=== PATIENT | female | born 1995 | race Two or more races ===

== ENCOUNTER 2025-07-08 20:32 | Emergency (ER) | payer MEDICAID, SELFPAY ==
[2025-07-08 20:37] VITALS: BP 105/73; PULSE 89; PULSE 93; RESP 18; TEMP 36.4; O2SAT 96; O2SAT 98; BMI 32.3
--- NOTE | 2025-07-08 20:42 | PD.EDRME ---
Rapid Medical Screening Exam [facility] Arrival date/time: 07/08/25 20:32 Chief Complaint: Abdominal Pain Time Seen by Provider: 07/08/25 20:36 Vital signs: Vital Signs Temperature 97.6 F 07/08/25 20:37 Pulse Rate 89 07/08/25 20:37 Respiratory Rate 18 07/08/25 20:37 Blood Pressure 105/73 07/08/25 20:37 Pulse Oximetry (%) 98 07/08/25 20:37 [facility] Narrative: Patient is a 29-year-old female with a limited past medical history who presented to the emergency room via EMS with a chief complaint of intractable nausea and vomiting and diarrhea after taking Wegovy at approximately 8 AM for the first time. Wegovy dose at 0.25 mg subcu x 1. Shortly after 3 PM patient started experiencing nausea and vomiting that is intractable. First time taking GLP-1. No blood in stool. No blood in emesis. No fevers or chills. Exam: General Appearance: Alert & Oriented X3, well-nourished female who is lying in rney in mild discomfort HEENT: Skull symmetrical and atraumatic. Conjunctivae pin and moist. Pupils equal, round, reactive to light and accommodation (PERRL). External ear without lesion or discharge. Straight, nares patient, mucosa pink, no discharge. Cardio: Normal Rate and Rhythm with S1 and S2 heart sounds. No murmurs or extra heart sounds auscultated. No bruits on carotid auscultation. No peripheral edema or cyanosis. Lungs: Symmetric with good expansion. Chest and back non-tender. Breath sounds vesicular without crackles, wheezing or rhonchi Abdomen: mild tenderness, left upper quadrant, Non-distended, Normal Reactive Bowel Sounds Neuro: Alert, cooperative, oriented to person, place, and time. Speech clear. CN grossly intact. Upper motor strength 5/5 and Lower motor strength 5/5. Sensation intact. Clinical Impression: Patient appears non toxic w/ stable vitals w/ chief complain of intractable nausea and vomiting. - The patient's plan was discussed with attending Dr. Korey Laguna MD PGY2 Internal Medicine
--- NOTE | 2025-07-08 20:50 | EKG_ITS ---
[facility] Test Date: 2025-07-08 Pat Name: RYANNE BERG Department: Room: - Gender: Female Echo Vasc Tech: : 1995 Requested By: Soila Laguna Order Number: [id number] Reading MD: Soila Laguna Measurements Intervals [place] Rate: 84 P: 26 TN: 136 QRS: 23 QRSD: 83 T: 28 QT: 346 QTc: 411 Interpretive Statements SINUS RHYTHM WITH SINUS ARRHYTHMIA INDETERMINATE AXIS NONSPECIFIC T-WAVE ABNORMALITY No previous ECG available for comparison /store/S0/[id number]/ecg/[id number].pdf
[2025-07-08] MEDS: ONDANSETRON ODT 4 MG TABRAP PO (21:14)
[2025-07-08] MEDS: PANTOPRAZOLE 40 MG TABLET PO (21:14)
[2025-07-08 21:17] LABS: Lactate (Lactic Acid) 1.9 mMol/L (0.4-2.0)
[2025-07-08 21:18] LABS: Basophils # (Auto) 0.0 Thou/mm3 (0.0-0.2); Basophils % (Auto) 0 % (0-2.5); Eosinophils # (Auto) 0.0 Thou/mm3 (0.0-0.5); Eosinophils % (Auto) 0 % (0-10); Hematocrit 46.5 % (36.0-46.0); Hemoglobin 15.8 g/dL (12.0-16.0); Immature Granulocytes Auto 0.02 Thou/mm3 (0.00-0.00); Lymphocytes # (Auto) 0.3 Thou/mm3 (1.0-4.8); Lymphocytes % (Auto) 3 % (10-50); Mean Corpuscular HGB Conc 34.0 g/dl (31.0-37.0); Mean Corpuscular Hemoglobin 29.1 pg (25.0-35.0); Mean Corpuscular Volume 86 fL (80-100); Monocytes # (Auto) 0.2 Thou/mm3 (0.0-0.8); Monocytes % (Auto) 2 % (0-12); Neutrophils # (Auto) 9.0 Thou/mm3 (1.8-7.7); Neutrophils % (Auto) 94 % (37-80); Nucleated Red Blood Cell # 0.00 Thou/mm3 (0.00-0.00); Nucleated Red Blood Cell % 0 /100 WBC (0); Platelet Count 252 Thou/mm3 (140-440); RDW Standard Deviation 39.5 fL (36.4-46.3); Red Blood Count 5.43 Miln/mm3 (4.00-5.20); White Blood Count 9.5 Thou/mm3 (3.6-11.0)
[2025-07-08 21:40] LABS: Alanine Aminotransferase 12 U/L (10-49); Albumin, Serum 5.3 gm/dL (3.5-5.0); Albumin/Globulin Ratio 1.9 (1.2-2.2); Alkaline Phosphatase 104 U/L (46-116); Amylase 55 U/L (30-118); Anion Gap 11 (7-16); Aspartate Amino Transferase 21 U/L (0-34); BUN/Creatinine Ratio 13 Ratio (12-20); Bilirubin,Total 1.1 mg/dL (0.3-1.2); Blood Urea Nitrogen 12 mg/dL (9-23); Calcium 10.6 mg/dL (8.3-10.6); Calcium (Corrected) 10.6 mg/dL (8.5-10.1); Carbon Dioxide 22.5 mMol/L (20.0-31.0); Chloride 108 mMol/L (98-107); Creatinine (Component) 0.9 mg/dL (0.6-1.3); Estimated Creatinine Clearance 79.3 mL/min (>60); Globulin 2.8 gm/dL (2.3-3.5); Glucose 123 mg/dL (74-106); Lipase 27 U/L (12-53); Magnesium 1.8 mg/dL (1.6-2.6); Osmolality,Calculated 281 (275-295); Potassium 4.1 mMol/L (3.4-5.1); Sodium 141 mMol/L (136-145); Total Protein 8.1 gm/dL (5.7-8.2); eGFR > 60 See Note
[2025-07-08 22:51] LABS: Collection Type, Urine Clean Catch
[2025-07-08 23:00] LABS: Amorphous Crystals,Urine Present (Absent); Bacteria,Urine Rare; Bilirubin,Urine Negative (Negative); Blood,Urine 1+ (Negative); Clarity,Urine Turbid (Clear/Hazy); Color,Urine Yellow (Lt Yel-Yel); Culture Indicated,Urine Not Indicated; Glucose, Urine Negative (Negative); HCG Qualitative,Urine Negative; Ketones,Urine 4+ (Negative); Leukocyte Esterase,Urine Negative (Negative); Nitrite,Urine Negative (Negative); PH,Urine 6.5 (5.0-7.0); Protein,Urine 1+ (Neg - Trace); RBC,Urine 8 /hpf (0-3); Specific Gravity,Urine 1.033 (1.001-1.035); Squamous Epithelial Cell,Urine 14 /hpf (0-5); Urobilinogen,Urine Negative mg/dL (0.0-1.0); WBC,Urine 4 /hpf (0-5)
[2025-07-08 23:09] LABS: Amphetamine/Methamp Scrn,U Negative (Negative); Barbiturate Screen,Urine Negative (Negative); Benzodiazepines Screen,Urine Negative (Negative); Benzoylecgonine Screen, Ur Negative (Negative); Fentanyl Screen,Urine Negative (Negative); Opiate Screen,Urine Negative (Negative); THC Screen,Urine Positive (Negative)
--- NOTE | 2025-07-08 23:25 | PD.EDNV ---
Nausea/Vomit./Diarrhea-RME/HPI General Chief complaint: Abdominal Pain Stated complaint: ABD PAIN Time Seen by Provider: 07/08/25 20:36 Arrival date/time: 07/08/25 20:32 RME / HPI RME / HPI Narrative: Patient is a 29-year-old female with a limited past medical history who presented to the emergency room via EMS with a chief complaint of intractable nausea and vomiting and diarrhea after taking Wegovy at approximately 8 AM for the first time. Wegovy dose at 0.25 mg subcu x 1. Shortly after 3 PM patient started experiencing nausea and vomiting that is intractable. First time taking GLP-1. No blood in stool. No blood in emesis. No fevers or chills. At 23:33-Patient now complaining of abdominal pain, mild right upper quadrant tenderness, and Right CVA tenderness--->US gallbladder ordered & CT Abdomen/Pelvis non contrast to rule out kideny stones. AT 3:00 AM-Went to update patient on US gallbladder results & Abdomen Pelvis CT after Pre-liminary read returned--->Patient not in room, Eloped. Patient had no IVs Related Data Previous Rx's ?Medication ?Instructions ?Recorded acyclovir 200 mg capsule 200 mg PO QID #20 caps 07/21/19 acetaminophen 650 mg 650 mg PO Q12H #30 tabs 04/20/22 tablet,extended release (Tylenol 8 Hour) ibuprofen 600 mg tablet 600 mg PO Q6H #30 tabs 11/04/23 ondansetron HCl 4 mg tablet 4 mg PO Q8H PRN nausea and 07/08/25 vomiting 7 days #14 tabs Allergies Allergy/AdvReac Type Severity Reaction Status Date / Time metoclopramide Allergy Severe Seizure Verified 04/20/22 09:37 adhesive tape Allergy Blister Verified 04/20/22 09:37 Review of Systems Review of Systems Narrative Review of Systems: General appearance: NO weight change, NO fatigue, NO weakness, NO fever, NO chills, NO night sweats, No cough Skin: NO rash, NO itching, NO sores, NO moles HEENT: NO Trauma, NO nausea, NO vomiting, NO visual changes, NO blurry vision, NO double vision, NO tinnitus, NO vertigo, NO ear discharge, NO rhinorrhea, NO stuffiness, NO sneezing, NO allergy, NO epistaxis. NO Hoarseness, NO sore throat, NO swollen neck. Cardiac: NO Palpitations, NO dyspnea on exertion, NO orthopnea, NO paroxysmal nocturnal dyspnea, NO edema Respiratory: NO Shortness of Breath, NO Wheezing, NO Cough, NO Sputum, NO hemoptysis GI:NO appetite, Yes nausea, Yes vomiting, NO dysphagia, NO changes in bowel frequency, NO stool color, NO diarrhea, NO constipation, NO hemetemesis, NO hemorrhoids, NO melena, NO hematechezia, NO abdominal pain, NO jaundice Renal: NO frequency, NO hesitancy, NO urgency, NO hematuria, NO nocturia, NO incontinence MSK: NO muscle weakness, NO gout, NO arthritis, NO muscle stiffness Neuro: NO headaches, NO tremors, NO weakness, NO paralysis, NO seizures, NO loss of consciousness, NO numbness. Hem: NO anemia, NO easy bruising/bleeding, NO petechiae, NO purpura Endo: NO heat/cold intolerance, NO excessive sweating, NO polyuria, NO polydipsia, NO polyphagia, NO thyroid problems, NO diabetes Pysch: NO mood, NO anxiety, NO depression ED Exam Narrative Physical exam: General Appearance: Alert & Oriented X3, well-nourished female who is lying in gurney in mild discomfort HEENT: Skull symmetrical and atraumatic. Conjunctivae pin and moist. Pupils equal, round, reactive to light and accommodation (PERRL). External ear without lesion or discharge. Straight, nares patient, mucosa pink, no discharge. Cardio: Normal Rate and Rhythm with S1 and S2 heart sounds. No murmurs or extra heart sounds auscultated. No bruits on carotid auscultation. No peripheral edema or cyanosis. Lungs: Symmetric with good expansion. Chest and back non-tender. Breath sounds vesicular without crackles, wheezing or rhonchi Abdomen: mild tenderness-left upper quadrant, Non-distended, Normal Reactive Bowel Sounds -->Repeat physical exam R. CVA and R. Upper Quadrant Pain Neuro: Alert, cooperative, oriented to person, place, and time. Speech clear. CN grossly intact. Upper motor strength 5/5 and Lower motor strength 5/5. Sensation intact. Course Quality Measures none Orders Category Date Time Status EKG (ED ONLY) *Do not use* NOW Care 07/08/25 20:50 Completed IV [Insert IV] NOW Care 07/08/25 20:48 Completed MRI Screening NOW Care 07/09/25 02:59 Completed NPO NOW Care 07/09/25 03:00 Completed Diet NPO (NOW) Diet 07/09/25 03:[address] abdomen pelvis wo con Stat Exams 07/08/25 23:40 Taken EKG (ED Only) Stat Exams 07/08/25 20:50 Draft MR MRCP Stat Exams 07/09/25 Ordered US gall bladder Stat Exams 07/08/25 23:41 Taken Amylase Stat Lab 07/08/25 21:10 Completed CBC Stat Lab 07/08/25 21:10 Completed Comprehensive Metabolic Panel Stat Lab 07/08/25 21:10 Completed Drug Screen,Urine Stat Lab 07/08/25 22:47 Completed HCG Qualitative,Urine Stat Lab 07/08/25 22:47 Completed HCG,Qualitative Serum Stat Lab 07/08/25 20:10 Completed Lactic Acid [Lactate (Lactic Acid)] Stat Lab 07/08/25 21:10 Completed Lipase Stat Lab 07/08/25 21:10 Completed Magnesium Stat Lab 07/08/25 21:10 Completed Urinalysis, C/S if Indicated Stat Lab 07/08/25 22:47 Completed Ketorolac Inj [Toradol Inj] Med 07/08/25 23:44 Discontinued 30 mg IM X1 ONE Morphine* Inj Med 07/08/25 23:40 Discontinued 2 mg IVP X1 ONE Ondansetron Inj [Zofran Inj] Med 07/08/25 20:48 Discontinued 4 mg IVP X1 ONE Ondansetron Odt [Zofran Odt] Med 07/08/25 21:03 Discontinued 4 mg PO X1 ONE Pantoprazole Inj [Protonix Inj] Med 07/08/25 20:48 Discontinued 40 mg IVP X1 ONE Pantoprazole [Protonix] Med 07/08/25 21:03 Discontinued 40 mg PO X1 ONE Vital Signs Vital signs: Vital Signs Temperature 97.6 F 07/08/25 20:37 Pulse Rate 89 07/08/25 20:37 Respiratory Rate 18 07/08/25 20:37 Blood Pressure 105/73 07/08/25 20:37 Pulse Oximetry (%) 98 07/08/25 20:37 Nausea/Vomiting/Diarrhea Patient data External records reviewed:: [facility] previous records Clinical information provided by:: patient Social determinants that could affect healthcare access:: none Patient has the following chronic illnesses:: None How is presenting disease/condition affected by chronic disease/condition?: no chronic disease Evaluation data The following diagnostics were reviewed and interpreted by me:: lab results and radiology exam(s) Lab and/or radiology exams considered but not ordered:: None Interpretation Summary: Patient is a 29-year-old female with a limited past medical history who presented with a chief complaint of nausea and vomiting and mild left upper quadrant pain. Patient recently started Wegovy. No Leukocytosis. Na dn K within normal limits. HCG Negative. UA, esterase negative, bactereia rare, and WBC 4-denied UTI symptoms. CT Abdomen: No evidence of renal or ureteric cacluli and negative hydroureteronephrosis. Partially distended gallbladder w/ gallstones. Us gallbladder: Cholelithiasis w/ mild wall thhickening, suspicious for acute cholecystitis. ---->MRCP to be ordered in the morning. - The patient's plan was discussed with attending Dr. Korey Laguna MD PGY2 Internal Medicine Medications / Prescriptions Medications / Prescriptions considered but not ordered:: None Medication administrations:: Medication Administration History Discontinued Medications Ketorolac Tromethamine (Ketorolac Inj 30 Mg/Ml Vial) 30 mg IM X1 ONE Stop: 07/08/25 23:45 Last Admin: 07/08/25 23:56 Dose: 30 mg Documented By: ARLETTE Morphine Sulfate (Morphine Sulf Inj 4 Mg/Ml Vial) 2 mg IVP X1 ONE Stop: 07/08/25 23:41 Last Admin: 07/08/25 23:52 Dose: Not Given Documented By: ARLETTE Non-Admin Reason: Cancelled by Provider Ondansetron HCl (Ondansetron Inj 2 Mg/Ml Inj 2 Ml) 4 mg IVP X1 ONE; Protocol Stop: 07/08/25 20:49 Last Admin: 07/08/25 21:06 Dose: Not Given Documented By: CELIA Non-Admin Reason: Discontinued Ondansetron HCl (Ondansetron Odt 4 Mg Tabrap) 4 mg PO X1 ONE; Protocol Stop: 07/08/25 21:04 Last Admin: 07/08/25 21:14 Dose: 4 mg Documented By: BD Pantoprazole Sodium (Pantoprazole Inj 40 Mg Vial) 40 mg IVP X1 ONE Stop: 07/08/25 20:49 Last Admin: 07/08/25 21:06 Dose: Not Given Documented By: CELIA Non-Admin Reason: Discontinued Pantoprazole Sodium (Pantoprazole 40 Mg Tablet) 40 mg PO X1 ONE Stop: 07/08/25 21:04 Last Admin: 07/08/25 21:14 Dose: 40 mg Documented By: ALDO Same as above Consultations Consultation(s) initiated? (list below): No Diagnosis Nausea Differential Diagnosis: food poisoning, gastroenteritis, drug-induced nausea and vomiting and other (cholethiasis vs kideny stone) Most likely diagnosis given after review of the tests above:: Patient is a 29-year-old female with a limited past medical history who presented with a chief complaint of nausea and vomiting and mild left upper quadrant pain. Patient recently started Wegovy. No Leukocytosis. Na dn K within normal limits. HCG Negative. UA, esterase negative, bactereia rare, and WBC 4-denied UTI symptoms. CT Abdomen: No evidence of renal or ureteric cacluli and negative hydroureteronephrosis. Partially distended gallbladder w/ gallstones. Us gallbladder: Cholelithiasis w/ mild wall thhickening, suspicious for acute cholecystitis. ---->MRCP to be ordered in the morning. concern for acute choleystitis. # acute cholecystitis-->Eloped Admission Indicated Admission indicated?: not indicated Explain why admission is indicated or not indicated:: Patient was pending MRCP and eloped,unable to place call. Admission Request Was there a request for admission?: No Disposition Plan Disposition Plan: other (specify) (Eloped ) Discharge Plan Plan Patient Disposition: Elopement Patient condition on transfer: Stable Health Concerns: Instructions: -You have been diagnosed with nausea and vomiting from medication side effect. Please speak to your primary doctor about your Wegovy. -Ondansetron 4 mg orally every 8hrs as need for nausea and vomiting -Please follow up with your primary doctor within one week of discharge. -Please follow up with your primary care provider within one week of discharge -If your symptoms worsen,please seek immediate medical attention and return to your nearest emergency room -If you do not have a primary care provider, you may follow up at the [facility] at [address], [place] [address], Prescriptions/Referrals Prescriptions/Med Rec: New ondansetron HCl 4 mg tablet 4 mg PO Q8H PRN (Reason: nausea and vomiting) 7 Days Qty: 14 0RF Continued acyclovir 200 mg capsule 200 mg PO QID Qty: 20 0RF acetaminophen [Tylenol 8 Hour] 650 mg tablet extended release 650 mg PO Q12H Qty: 30 0RF ibuprofen 600 mg tablet 600 mg PO Q6H Qty: 30 0RF Discontinued hydrocodone-acetaminophen [[place]] 5-325 mg tablet 1 tab PO Q4H MDD 6 PRN (Reason: pain) Qty: 30 0RF Vitamin 27 mg iron- 0.8 mg Tablet 1 tab PO QDAY Referrals: No Primary/Family,Physician [Primary Care Provider] - In 1 week Problem List Clinical Impression: Nausea & vomiting Patient/Caregiver Discharge Instructions Education Materials: ED Diet for Vomiting or ... Print Language: Welsh Stand Alone Forms: Aysha Award Info., Patient Portal Info Letter
--- NOTE | 2025-07-08 23:40 | XR_ITS ---
Examination: CT abdomen and pelvis without contrast. Coronal 3-D reconstructions. Sagittal 2-D reconstructions. Date and time of exam: July 09, 2025, 0010 hours INDICATIONS: Bilateral flank pain beginning today CTDI: vol (mGy): 8.38 DLP: (mGycm): 460 Technique: Axial images of the abdomen have been obtained, 3 mm slice thickness Intravenous contrast material has not been administered. Low dose protocols were performed. One or more of the following dose reduction techniques were used; automated exposure control, adjustment of the mA and/or KV according to patient size, use of iterative reconstruction technique. Findings: No focal liver or splenic lesions Multiple gallstones, contracted gallbladder No pancreatic or adrenal mass No renal or ureteral calculi, no hydronephrosis Aorta normal size Absent appendix No bowel obstruction or diverticulitis Urinary bladder intact Anteverted uterus no adnexal mass Osseous structures intact IMPRESSION: Cholelithiasis, negative for cholecystitis Negative for pancreatitis No renal or ureteral calculi, no hydronephrosis
--- NOTE | 2025-07-08 23:41 | XR_ITS ---
Examination: Abdomen sonogram, Limited Date and time of exam: July 09, 2025, 0102 hours INDICATIONS: Nausea vomiting beginning 4 hours ago Technique: Real-time petit scale transabdominal sonographic images of the upper abdomen obtained. Findings: Cholelithiasis Contracted gallbladder Gallbladder wall thickness 0.39 cm Common bile duct 0.3 cm Pancreatic head 2.6 cm Liver 11.9 cm fatty infiltration Normal hepatopetal portal venous flow Patent IVC IMPRESSION: Cholelithiasis Thickened gallbladder wall 0.39 cm, consider HIDA scan or MRCP follow-up
[2025-07-08] MEDS: KETOROLAC INJ 30 MG/ML VIAL IM (23:56)
[2025-07-08 23:58] VITALS: BP 106/65; PULSE 90; RESP 18; TEMP 36.6; O2SAT 97
[2025-07-09 00:06] LABS: HCG,Qualitative Serum Negative
--- NOTE | 2025-07-09 01:55 | PRELIM_ITS ---
CT scan of the abdomen and pelvis without intravenous contrast (axial sections with sagittal and coronal reformats) July 09, 2025 0009 hours Clinical History: Flank pain Comparison: No prior study available for comparison. Findings: There are multiple gallbladder calculi, largest measuring 5 mm without obvious wall edema or pericholecystic fat stranding. There is no biliary obstruction. The liver, spleen, adrenals and pancreas are unremarkable on this noncontrast study. There is no renal or ureteric calculi or hydroureteronephrosis. There is no bowel obstruction. The appendix is surgically absent. There is no significant lymphadenopathy. The aorta is unremarkable on this noncontrast study. The urinary bladder is partially distended. There is possible scarring / urachal remnant (sagittal image 100/202). The uterus demonstrates lobulated contour. There is no adnexal mass. Phleboliths are seen in the pelvis. There is no free fluid or free air. There is mild disc disease in the lumbar spine. The osseous structures are otherwise unremarkable. The visualized lung bases are clear. Please note that evaluation of soft tissue/vascular structures and bowel loops is limited due to absence of IV and oral contrast. Impression: 1. No evidence of renal or ureteric calculi or hydroureteronephrosis. 2. Partially distended gallbladder with gallstones. Recommend further evaluation with sonography, if clinically indicated. 3. Other findings as described above. Suggest clinical correlation and follow up accordingly. Report Electronically Signed By: Samuel Garces 07/09/2025 1:54:33 AM [EST]
--- NOTE | 2025-07-09 02:44 | PRELIM_ITS ---
Gallbladder ultrasound. July 09, 2025 0102 hours Clinical history: Right upper quadrant pain Comparison: No prior study available for comparison. Findings: The liver demonstrates mild heterogeneous echotexture without biliary obstruction. The gallbladder is contracted demonstrating multiple calculi (with wall echo shadowing). The main portal vein is patent and demonstrates normal color flow. There is mild gallbladder wall edema (4 mm) no obvious perichole cystic fluid is identified. Sonographic Sandhu sign is negative. Please correlate with any pain medication. The common bile duct is normal in caliber at 3 mm. The pancreas is unremarkable to the extent visualized. The aorta and IVC are unremarkable to the extent visualized. Impression: Cholelithiasis with mild wall thickening, suspicious for acute cholecystitis. However, sonographic Sandhu sign is negative. Please correlate with any pain medication. Recommend clinical correlation and further evaluation with HIDA scan as indicated. Report Electronically Signed By: Samuel Garces 07/09/2025 2:43:15 AM [EST]
--- NOTE | 2025-07-09 03:18 | PC.NURSE ---
UPON RETURN FROM LUNCH, THIS RN WAS MADE AWARE THAT PATIENT WAS NOT IN ROOM.
== END 2025-07-09 03:19 | disposition left against medical advice (07) ==
PROVIDERS: Emergency Provider Emergency Medicine
DX: K80.20 Calculus of gallbladder without cholecystitis without obstruction (principal)
CPT/HCPCS: 36415; 74176; 76705; 80053; 80307; 81001; 81025; 82150; 83605; 83690; 83735; 84703; 85025; 93005; 96372; 99284; J1885; Q0162; A9270